=== PATIENT | female | born 1965 | race Hispanic/Latino ===

== ENCOUNTER 2017-12-13 08:12 | Outpatient (CLI) | payer OTHER ==
[2017-12-13] MEDS ORDERED: Iopamidol 370 76% 100 ML VIAL ONE (12:15)
== END 2017-12-13 08:13 | disposition home or self-care (01) ==
LOC: BICCT 08:12
PROVIDERS: ATTEND Internal Medicine Gastroenterology
DX: K85.00 Idiopathic acute pancreatitis without necrosis or infection (principal); Q63.1 Lobulated, fused and horseshoe kidney; D25.9 Leiomyoma of uterus, unspecified
CPT/HCPCS: 74177

== ENCOUNTER 2018-02-05 09:34 | Outpatient (CLI) | payer OTHER | END 2018-02-05 09:35 | disposition home or self-care (01) | LOC: BICMAMMO 09:34 | PROVIDERS: ATTEND Physician Assistant | DX: Z12.31 Encounter for screening mammogram for malignant neoplasm of breast (principal) | CPT/HCPCS: 77063; 77067 ==

== ENCOUNTER 2018-02-12 13:08 | Outpatient (CLI) | payer OTHER | END 2018-02-12 13:09 | disposition home or self-care (01) | LOC: BICMAMMO 13:08 | PROVIDERS: ATTEND Physician Assistant | DX: N63.20 Unspecified lump in the left breast, unspecified quadrant (principal) | CPT/HCPCS: G0279 ==

== ENCOUNTER 2019-03-02 02:41 | Observation (INO) | payer OTHER ==
[2019-03-02 03:06] LABS: #Eosinphils 0.1 thou/uL (0.0-0.7); #Lymphocytes 1.1 thou/uL (1.20-3.40); #Monocytes 0.7 thou/uL (0.11-0.59); #Neutrophils 7.9 thou/uL (1.40-6.50); %Basophils 0.1 % (0.0-1.0); %Eosinophils 1.2 % (0.0-10.0); %Lymphocytes 10.9 % (21.0-51.0); %Monocytes 6.7 % (0.0-10.0); Hemoglobin 12.9 g/dL (12.0-16.0); Mean Corpuscular Hemoglobin 30.3 pg (27.0-31.0); Mean Corpuscular Volume 91.9 fL (78.0-98.0); Mean Platelet Volume 6.7 fL (7.4-10.4); Platelet Count 283 thou/uL (130-400); RBC Distribution Width 12.4 % (11.5-14.5); Red Blood Cell (RBC) Count 4.26 mill/uL (4.20-5.40); White Blood Cell (WBC) Count 9.7 thou/uL (4.8-10.8)
[2019-03-02 03:24] LABS: Bilirubin Negative (Negative); Blood, Urine Negative (Negative); Clarity TURBID (Clear); Glucose, Urine (Dipstick) Negative (Negative); Leukocyte Small (Negative); Nitrite Negative (Negative); Protein, Urine (Dipstick) Trace mg/dL (Neg-Trace); Specific Gravity, Urine 1.021 (1.002-1.036); Urobilinogen 0.2 mg/dL (0.2-1.0); pH, Urine 7.5 (5.0-9.0)
[2019-03-02 03:26] LABS: ALT (SGPT) 10 U/L (8-55); AST (SGOT) 21 U/L (5-34); Albumin 4.2 g/dL (3.5-5.0); Alkaline Phosphatase 81 U/L (40-150); Anion Gap 13 mmol/L (10-20); BUN (Urea Nitrogen) 17 mg/dL (9.8-20.1); Bilirubin, Total 0.3 mg/dL (0.2-1.2); Calc. Creatinine Clearance 0 mL/min (70-130); Calcium 9.2 mg/dL (7.8-10.44); Carbon Dioxide 27 mmol/L (22-29); Chloride 102 mmol/L (98-107); Estimated GFR-MDRD 90; Globulin 3.7 g/dL (2.4-3.5); Glucose 149 mg/dL (70-105); Lipase 413 U/L (8-78); Potassium 3.6 mmol/L (3.5-5.1); Protein, Total 7.9 g/dL (6.0-8.3); Sodium 138 mmol/L (136-145)
[2019-03-02 03:27] LABS: Bacteria/HPF Rare-Few HPF (None Seen); Pathc Cast-AUWi Flag 1.63 (0-2.49); RBC/HPF 0-3 HPF (0-3); Squamous Epithelial 21-50 HPF (0-3)
[2019-03-02 03:40] LABS: Crystals/HPF 2+ AMORPH PHOS HPF (Negative); Hyaline Casts/LPF 0-3 HYALINE CAST LPF (0-3 Hyaline); Renal Epithelial None Seen HPF (0-3); Transitional Epithelial NONE SEEN HPF (0-3)
[2019-03-02] MEDS ORDERED: Ketorolac Tromethamine 30 MG/ML VIAL ONE (03:43)
[2019-03-02] MEDS ORDERED: Morphine 4 MG/ML VIAL ONE (04:19)
[2019-03-02] MEDS ORDERED: Sodium Chloride 0.9% 1,000 ML IV SCH (05:32)
[2019-03-02] MEDS ORDERED: Acetaminophen 500 MG TAB PO PRN (05:32)
[2019-03-02] MEDS ORDERED: Ondansetron PF 4 MG/2 ML Vial IVP PRN (05:32)
[2019-03-02] MEDS ORDERED: Ondansetron ODT 4 MG TAB PO PRN (05:32)
[2019-03-02] MEDS ORDERED: Morphine 4 MG/ML VIAL SLOW IVP PRN (05:32)
[2019-03-02] MEDS ORDERED: hydrALAZINE 20 MG/ML VIAL SLOW IVP PRN (05:32)
[2019-03-02 05:58] VITALS: BMI 24.0
--- NOTE | 2019-03-02 06:32 | HP ---
PRIMARY CARE PROVIDER: Abby Toribio PA-C at [facility], [place], [place]. CHIEF COMPLAINT: Abdominal pain. HISTORY OF PRESENT ILLNESS: This is a 53-year-old female, who initially presented to [facility] complaining of epigastric abdominal pain, which began approximately 2200 hours on 03/01/2019. The patient had eaten a fried chicken meal approximately 1700 hours on 03/01/2019 and suddenly began feeling symptoms of abdominal pain. The patient admits some radiation of the pain to her right lower quadrant, however, denied any nausea or emesis. The patient states she has had similar pain in the past and was diagnosed with pancreatitis in 2017. The patient underwent extensive evaluation including CT imaging as well as EGD and colonoscopy exams in 2017 without specific identifiable source. The patient denies any new medication exposure, travel history, change to bowel habits, hematochezia, or fever. The patient was initially evaluated in the emergency room, undergoing CT imaging of the abdomen and pelvis showing evidence of a posterior pancreatic pseudocyst with a peripancreatic inflammation consistent with acute pancreatitis. The patient received IV morphine sulfate in addition to intravenous normal saline x2 and Toradol. PAST MEDICAL HISTORY: 1. Chronic pancreatitis, idiopathic. 2. Uterine fibroids. PAST SURGICAL HISTORY: Status post EGD and colonoscopy with negative findings. CURRENT MEDICATIONS: Multivitamin. ALLERGIES: NO KNOWN DRUG ALLERGIES. FAMILY HISTORY: Positive for CVA in her mother and father. SOCIAL HISTORY: The patient is , accompanied by her in the hospital. Resides in [place], [place]. No current alcohol, tobacco, or illicit drug use. Functional of all activities of daily living. REVIEW OF SYSTEMS: CONSTITUTIONAL: Negative for weight loss or gain, ability to conduct usual activities. SKIN: Negative for rash, itching. EYES: Negative for double vision, pain. ENT/MOUTH: Negative for nose bleeding, neck stiffness, pain, tenderness. CARDIOVASCULAR: Negative for palpitations, dyspnea on exertion, orthopnea. RESPIRATORY: Negative for shortness of breath, wheezing, cough, hemoptysis, fever or night sweats. GASTROINTESTINAL: Negative for poor appetite, abdominal pain, heartburn, nausea, vomiting, constipation, or diarrhea. GENITOURINARY: Negative for urgency, frequency, dysuria, nocturia. MUSCULOSKELETAL: Negative for pain, swelling. NEUROLOGIC/PSYCHIATRIC: Negative for anxiety, depression. ALLERGY/IMMUNOLOGIC: Negative for skin rash, bleeding tendency. Otherwise, negative except as stated per HPI. PHYSICAL EXAMINATION: VITAL SIGNS: On admission, blood pressure 120/54, pulse 68, respiratory rate 16, temperature 98.2 degrees Fahrenheit, and O2 saturation 100% on room air. GENERAL APPEARANCE: This is a 53-year-old female, alert and oriented x3, pleasant, conversant, in no acute distress. HEENT: Pupils are equal, round, and reactive to light and accommodation. Extraocular muscles are intact. No scleral icterus. No conjunctival injection. Nares are patent. OP is clear. Teeth in good repair. NECK: Supple. No cervical adenopathy. No thyromegaly. No carotid bruits. No JVD appreciated. Cervical spine with full active and passive range of motion. No meningeal signs noted. CHEST: Lungs are clear to auscultation bilaterally. CARDIOVASCULAR: S1 and S2 without noted murmur, rub, or gallop. ABDOMEN: Rounded with mild tenderness to palpation in the mid epigastric region. No palpable mass. No rebound or guarding. Bowel sounds are positive in all 4 quadrants. EXTREMITIES: Warm and dry with fair turgor. No clubbing, cyanosis, or asymmetric edema appreciated. Pulses are palpable distally at the dorsalis pedis, posterior tibial, and popliteal arteries bilaterally. Capillary refill less than 2 seconds. NEUROLOGIC: Cranial nerves II through XII are grossly intact. No focal or lateralizing signs appreciated. PERTINENT LABORATORY AND X-RAY FINDINGS: Basic metabolic profile within normal limits. LFTs within normal limits. Albumin 4.2. Lipase 413, previously noted 120 on 08/14/2017. CBC showed a white blood cell count of 9.7, hemoglobin 13, hematocrit 39, and platelet count 283 with 81% neutrophils. Urinalysis showed small leukocyte esterase with 21 to [address] of the abdomen and pelvis dated 03/02/2019, showed posterior pancreatic pseudocyst with questionable distal body/tail necrosis. Peripancreatic inflammatory changes consistent with acute pancreatitis. Large heterogeneous uterine fibroid. Abdominal ultrasound dated 03/02/2019, showed increased echogenicity of the pancreas with indeterminate heterogeneous collection posterior to the pancreas with questionable pseudocyst. ASSESSMENT AND PLAN: 1. Acute on chronic pancreatitis. The patient will be observed on the medical unit. Exact etiology of the patient's presentation, unclear. We will continue supportive management with n.p.o. status. Continue intravenous normal saline at 100 mL/h. Pain control with morphine sulfate 4 mg IV q.4 hours p.r.n. Consult GI Service for further recommendations and management. The patient may need additional endoscopy versus MRCP. Repeat lipase in the a.m. Check fasting lipid profile. 2. Uterine fibroids. Chronic uterine fibroids upon review of the electronic medical record. Recommend outpatient followup for evaluation and management. 3. Prophylaxis. SCDs while in bed. Pepcid 20 mg IV b.i.d. 4. Code status is full. Surrogate medical decision maker is the patient's spouse. Job ID: [id number]
--- NOTE | 2019-03-02 07:15 | ULT ---
GALLBLADDER ULTRASOUND: Date: 03/02/19 INDICATION: Abdominal pain with elevated pancreatic enzymes. History of pancreatitis. FINDINGS: No focal hepatic lesion or acute gallbladder pathology. The imaged common duct is normal at 2.0 mm in diameter. Vargas's sign reported as negative by four horse hitch driver. Within the region of the imaged pancreas, there is heterogeneity with decreased echogenicity noted, i ncompletely assessed. IMPRESSION: Heterogeneity of the incidentally imaged portions of the pancreas. This could relate to cystic mass, pseudocyst, and/or component of edema related to superimposed pancreatitis. Recommend CT exam for fur ther assessment. POS: CYNDY
[2019-03-02 07:38] LABS: Cardiac Risk 3.8 (Less than 4.5)
[2019-03-02] MEDS: Famotidine/PF 20 mg/2ml Vial SLOW IVP SCH ×2 (07:46→20:36)
[2019-03-02] MEDS: Sodium Chloride 0.9% 1,000 ML IV SCH ×3 (08:59→20:38)
--- NOTE | 2019-03-02 10:09 | CT ---
[facility] REPORT/[facility]/EMERGENCY AFTER HOURS PROCEDURE: EXAM: CT Abdomen and Pelvis With Contrast EXAM DATE/TIME: 03/02/2019 3:55 AM CLINICAL HISTORY: 53 years old, female; Pain; Abdominal pain; Epigastric; Patient HX: PT reports getting r. Sided abdominal pain starting at 2200 tonight. Reports pain worse in ruq and epigastric area. PT reports eating fried chicken. Has had pain like this when eating fatty meals. PT reports chills tonight. Repo rts nausea. Denies any vomiting. Denies any chest pain or SOB. Denies any urinary SX or burning with urination. Reports HX of pancreatitis. TECHNIQUE: Imaging protocol: Axial computed tomography images of the abdomen and pelvis with intravenous contrast. Coronal reformatted images were created and reviewed. COMPARISON: US Gallbladder RUQ 03/02/2019 3:13 AM FINDINGS: Lower thorax: The visualized portions of the lung bases are normal. ABDOMEN: Liver: There are no focal liver lesions identified. Gallbladder and bile ducts: The gallbladder is normal. There is no evidence of biliary ductal dilation. Pancreas: There is heterogeneous debris noted posterior to the pancreas measuring approximately 6.4 x 1.5 x 1.6 cm and hypoattenuation involving the distal pancreatic body/tail. Finding is compatib le with pseudocyst and/or pancreatic necrosis. There is peripancreatic inflammation consistent with pancreatitis. Spleen: The spleen is normal. Adrenals: The adrenal glands are normal. Kidneys and ureters: There is a horseshoe kidney. There are multiple renal hypodensities that cannot be further characterized on the current examination. Stomach and bowel: The stomach is mildly distended with debris. The colon is normal. Appendix: A normal appendix is identified. PELVIS: Bladder: The bladder is normal. Reproductive: There is a large heterogeneous mass within the LEFT uterus measuring 7.8 x 7.4 x 6 cm possibly representing a large fibroid although ovarian pathology is not completely excluded. ABDOMEN and PELVIS: Intraperitoneal space: Normal. No free air. No significant fluid collection. Bones/joints: No acute fracture. No dislocation. Soft tissues: Unremarkable. Vasculature: Normal. No abdominal aortic aneurysm. Lymph nodes: Normal. No enlarged lymph nodes. IMPRESSION: 1. Posterior pancreatic pseudocyst and/or distal body/tail necrosis as above. 2. There is peripancreatic inflammation consistent with acute pancreatitis. 3. Large heterogeneous uterine fibroid versus ovarian pathology (less likely). Clinical correlation advised. Thank you for allowing us to participate in the care of your patient. Dictated and Authenticated by: Vin Alvarado MD 03/02/2019 4:22 AM Central Time ([place] & [place]) FINAL REPORT Exam: Abdomen CT with contrast Pelvic CT with contrast History: Abdominal pain. Epigastric pain. Right upper quadrant pain. Comparison: None FINDINGS: This report is in agreement with the preliminary report by [facility]. There is heterogeneity in the peripan creatic region with hypoattenuation involving the body and tail the pancreas, as described in prelimi nary report by [facility]. Correlate for pancreatic necrosis versus pseudocyst. Adjacent inflammatory change s are felt to be due to pancreatitis. There is abnormal hypoattenuation along the gastrohepatic ligam ent, likely reactive. Incidental horseshoe kidney Solid attenuation mass with enhancement in the uterus, likely representing a uterine fibroid. Nonemer gent CABLE WAY OPERATOR consultation is recommended IMPRESSION: Inflammatory changes, compatible with pancreatitis. Correlate for lab values. Hypodensities in the pa ncreatic parenchyma as described in the preliminary report by [facility]. Transcribed Date/Time: 03/02/2019 10:09 AM
--- NOTE | 2019-03-02 11:52 | CON ---
DATE OF CONSULTATION: 03/02/2019 REASON FOR CONSULTATION: Pancreatitis. HISTORY OF PRESENT ILLNESS: Breanna Woody is a 53-year-old woman, who speaks Beninese only, but her translates for us today. She is a patient of my GI colleague, Dr. Oumar Winters. He has seen her in the past for episodes of recurrent acute pancreatitis, which were felt to be idiopathic based on extensive prior workup. She developed a couple of posterior pancreatic fluid collections and actually underwent endoscopic ultrasound with Dr. Carty about a year ago. EUS in March 2018 demonstrated 2 fluid collections measuring 2.7 cm and 3.5 cm in the body and tail of the pancreas. FNA was performed, which showed scant cellularity and debris, and this was thought to be a benign finding. The patient did not follow up for repeat pancreatic imaging after this. She reports that over the past year, she has been asymptomatic; however, about 10 p.m. last night, she fairly acutely had the onset of pain in the epigastrium radiating somewhat to the right upper quadrant. There was associated nausea, but no vomiting. The pain escalated over the course of a couple of hours and that prompted her presentation. In the Emergency Department, lipase was found to be elevated to 413. LFTs were normal. CBC and CMP were satisfactory and the CT of the abdomen and pelvis demonstrated peripancreatic inflammatory changes as well as a posterior pancreatic debris collection measuring 6.4 cm. Ultrasound showed this collection is measuring 5.8 cm. Notably, there is also a left uterine mass measuring 7.8 cm, but the patient has a known history of uterine fibroids. The patient has received morphine this morning. She last needed it 1 hour ago. This does well at controlling her pain symptoms. She has no other symptoms. She is not hungry. She has not had any bowel movements today. Vital signs have all been stable. She is receiving morphine and IV normal saline. REVIEW OF SYSTEMS: Full review of systems including constitutional, head, eyes, ears, nose, throat, GI, , cardiovascular, respiratory, musculoskeletal, and neurologic systems are negative except as noted in the HPI. PAST MEDICAL HISTORY: 1. Chronic recurrent pancreatitis. 2. Uterine fibroid. 3. Posterior pancreatic fluid collections with endoscopic ultrasound March 2018. ALLERGIES: NO KNOWN DRUG ALLERGIES. OUTPATIENT MEDICATIONS: Multivitamin. SOCIAL HISTORY: No current smoking, alcohol, or drug use. FAMILY HISTORY: Noncontributory. PHYSICAL EXAMINATION: VITAL SIGNS: Temperature 98.2, pulse 68, blood pressure 120/54, and 100% oxygen saturation on room air. GENERAL: A 53-year-old woman, lying in bed comfortably, in no acute distress. Appearing nontoxic. SKIN: No jaundice. No rashes were palpable. EYES: No scleral icterus. Extraocular movements intact. ENT: Mucous membranes moist. No oral lesions. LYMPH: No submandibular or supraclavicular lymphadenopathy. THYROID: Nontender to palpation. HEART: Regular rate and rhythm. LUNGS: Clear to auscultation bilaterally. ABDOMEN: Bowel sounds are present though hypoactive. The abdomen is soft. There is no guarding or rebound tenderness. There is some tenderness to palpation in the epigastrium. EXTREMITIES: No peripheral edema. VESSELS: Radial pulses 2+ bilaterally. NEURO: Cranial nerves 2 through 12 intact bilaterally. No focal deficits. LABORATORY STUDIES: Lipase elevated to 413, total bilirubin 0.3, alkaline phosphatase 81, AST 21, ALT 10, albumin 4.2, BUN 17, and creatinine 0.68. WBC 9.7, hemoglobin 12.9, and platelets 283. IMAGING STUDIES: CT of the abdomen and pelvis demonstrated peripancreatic inflammation posterior pancreatic debris collection measuring 6.4 cm. The liver, gallbladder, and common bile duct all appeared normal. There was a left uterine mass measuring 7.8 cm, which is felt to be probably fibroid. Abdominal ultrasound demonstrated normal gallbladder and bile ducts. Posterior pancreatic heterogeneous fluid collection measured 5.8 cm on ultrasound. ASSESSMENT AND PLAN: 1. Acute recurrent pancreatitis, idiopathic. 2. Chronic posterior pancreatic fluid collection. I reviewed the results for CT imaging and compared them to EUS findings from last year. At that time, EUS demonstrated 2 smaller fluid collections measuring 2.7 cm and 3.5 cm in the pancreatic body and tail. These are in close proximity. Putting them together, this measures about the size of her fluid collection seen by CT this admission. I suspect that there has been no significant overall change in appearance of this fluid collection over the past year. Prior FNA did not show any findings concerning for malignancy. This is somewhat reassuring. I think the patient will need endoscopic ultrasound within the next few months after resolution of this acute episode. Regarding her acute presentation, all of the lab findings are favorable. Her pain is well controlled with the morphine. I would keep her n.p.o. and on the IV fluids today. If her pain requirements are decreasing overnight, she is feeling hungry, could potentially advance her diet to clear liquids tomorrow morning. Hopefully, this episode last no longer than 1 or 2 days. Thank you for the consultation. Please call back at anytime with questions or concerns. Job ID: [id number]
[2019-03-02] MEDS ORDERED: ISOVUE-370 76%-LOCM 1 ML ONE (11:56)
[2019-03-02] MEDS ORDERED: Ketorolac Tromethamine 30 MG/ML VIAL IVP SCH (12:00)
--- NOTE | 2019-03-02 12:47 | PDOC.EVN ---
Event Note - Event Note Event Note: Pt seen and examined.Chart reviewed.care discussed w at bedside c/o 05/11 pain. will increase IVF.CONT NPO.Stop scheduled toradol.prn morphine am labs w Lipase,LFT,CBC,INR,Mag etc
[2019-03-03] MEDS: Sodium Chloride 0.9% 1,000 ML IV SCH ×2 (03:36→11:08)
[2019-03-03 05:35] LABS: ALT (SGPT) 7 U/L (8-55); AST (SGOT) 15 U/L (5-34); Albumin 2.9 g/dL (3.5-5.0); Alkaline Phosphatase 58 U/L (40-150); Anion Gap 8 mmol/L (10-20); BUN (Urea Nitrogen) 6 mg/dL (9.8-20.1); Bilirubin, Total 0.5 mg/dL (0.2-1.2); Calc. Creatinine Clearance 117 mL/min (70-130); Calcium 7.8 mg/dL (7.8-10.44); Carbon Dioxide 25 mmol/L (22-29); Chloride 110 mmol/L (98-107); Estimated GFR-MDRD Greater than 90; Globulin 2.7 g/dL (2.4-3.5); Glucose 82 mg/dL (70-105); Lipase 490 U/L (8-78); Magnesium 1.5 mg/dL (1.6-2.6); Potassium 3.2 mmol/L (3.5-5.1); Protein, Total 5.6 g/dL (6.0-8.3); Sodium 140 mmol/L (136-145)
[2019-03-03 06:36] LABS: Band 3 % (5-11); Eosinophils 5 % (0-10); Hemoglobin 10.5 g/dL (12.0-16.0); Lymphocytes 18 % (21-51); MDiff Complete? YES; Mean Corpuscular HGB CONC 33.7 g/dL (32.0-36.0); Mean Corpuscular Hemoglobin 31.5 pg (27.0-31.0); Mean Corpuscular Volume 93.5 fL (78.0-98.0); Mean Platelet Volume 6.9 fL (7.4-10.4); Monocytes 12 % (0-10); Neutrophil 62 % (42-75); Platelet Count 195 thou/uL (130-400); RBC Distribution Width 12.6 % (11.5-14.5); Red Blood Cell (RBC) Count 3.33 mill/uL (4.20-5.40); White Blood Cell (WBC) Count 4.1 thou/uL (4.8-10.8)
[2019-03-03] MEDS ORDERED: Magnesium Sulfate 2 GM in Sodium Chloride 0.9% 100 ML IVPB SCH (08:45)
[2019-03-03] MEDS ORDERED: Magnesium 2 GM/50 ML 2 GM in Premix Bag 1 BAG IVPB SCH (08:45)
[2019-03-03] MEDS ORDERED: Potassium Chloride 40 MEQ in Premix Bag 1 BAG IVPB SCH (08:45)
[2019-03-03] MEDS: Famotidine/PF 20 mg/2ml Vial SLOW IVP SCH (08:58)
[2019-03-03] MEDS: Potassium Chloride 20 MEQ in Premix Bag 1 BAG IVPB SCH (12:34)
[2019-03-03 16:31] VITALS: BP 95/54; TEMP 98.4
--- NOTE | 2019-03-03 18:07 | DIS ---
DATE OF ADMISSION: 03/02/2019 DATE OF DISCHARGE: 03/03/2019 CONDITION: At the time of discharge, stable and improved. DISCHARGE DISPOSITION: Home. DISCHARGE DIAGNOSIS: Acute pancreatitis. SECONDARY DISCHARGE DIAGNOSIS: 1. History of chronic idiopathic pancreatitis. 2. Uterine fibroids. DISCHARGE MEDICATION: None. IN-HOUSE CONSULTATION: Gastroenterology, Dr. Vin Oliva. PROCEDURES DONE IN THE HOSPITAL: 1. CT scan of the abdomen and pelvis, which demonstrated findings of posterior pancreatic pseudocyst in her distal body/tail necrosis as above. Peripancreatic inflammation was seen consistent with acute pancreatitis. A large uterine fibroid was also seen. 2. Abdominal ultrasound, which showed heterogenicity of the incidentally imaged portion of the pancreas related to the cystic mass: pseudocyst or component of edema. HISTORY OF PRESENTING ILLNESS: Ms. Nolan Woody is a 53-year-old female with known history of pancreatitis and chronic pancreatitis, who presented to the emergency room with abdominal pain complaints. She underwent a CT scan of the abdomen and pelvis, which showed findings consistent with acute pancreatitis with possible necrosis, and ultrasound showing the possible pseudocyst. Large heterogeneous uterine fibroid was also seen. She was found to have a lipase of 413. She was put on n.p.o. with IV fluids as per acute pancreatitis treatment and Gastroenterology was consulted. Please see admission History and Physical dictated by Dr. Lux on 03/02/2019 for further details. HOSPITAL COURSE: The patient actually did fairly well throughout her short hospitalization. Dr. Oliva saw the patient, and he knows her from prior visits and clinic visits. He reviewed the CT scan results, and according to his opinion, these are the same as the results of the EUS done in [place] for this patient. He recommended conservative management with IV fluids, n.p.o., and pain control. As of this morning, the patient is feeling much better and has not required any pain medication for the last several hours. Diet was started, and she tolerated the clear liquids and later full diet without any nausea, vomiting, or abdominal pain. She was eager to go home and was discharged. She will follow up with Gastroenterology in the outpatient setting as well. Discharge lipase is still 490. Liver enzymes are within normal limit, and serum chemistries and CBC are unremarkable. Potassium was found to be low, which was supplemented. Magnesium was low, which was supplemented prior to discharge. PRIMARY CARE PHYSICIAN: Abby Toribio PA-C Job ID: [id number]
== END 2019-03-03 16:35 | disposition home or self-care (01) ==
LOC: ERS 02:41 → 2SW 04:14
PROVIDERS: ADMIT Family Medicine; ATTEND Family Medicine
DX: K85.90 Acute pancreatitis without necrosis or infection, unspecified (principal); K86.1 Other chronic pancreatitis; D25.9 Leiomyoma of uterus, unspecified; Z79.899 Other long term (current) drug therapy
CPT/HCPCS: 36415; 74177; 76705; 80053; 80061; 81003; 81015; 83690; 83735; 85007; 85025; 85027; 96361; 96365; 96374; 96375; 96376; G0378; J1885; J2270; J2405; J3475; J3480; Q9966; S0028